=== PATIENT | female | born 2000 | race Caucasian/White ===

== ENCOUNTER 2021-10-16 22:51 | Emergency (ER) | payer BC ==
[2021-10-17 00:23] LABS: HEMOGLOBIN 12.4 gm/dl (12.3-15.3); RED BLOOD COUNT 4.13 M/UL (4.00-5.10); WHITE BLOOD COUNT 6.1 K/UL (4.5-11.0)
[2021-10-17 00:44] LABS: BUN/CREATININE RATIO 17 (0-10)
[2021-10-17] MEDS ORDERED: TORADOL 10 MG T10 MG PO (03:01)
[2021-10-17] MEDS ORDERED: ONDANSETRON ODT4 MG SL (03:01)
== END 2021-10-17 03:28 | disposition home or self-care (01) ==
LOC: ER1 22:51
PROVIDERS: Family Medicine
DX: N83.201 Unspecified ovarian cyst, right side (principal)
CPT/HCPCS: 80053; 81001; 83690; 84703; 85025; 96374; 99284; J1885; Q9967